=== PATIENT | male | born 1955 | race American Indian/Alaskan Native ===

== ENCOUNTER 2017-09-02 11:25 | Outpatient (CLI) | payer MEDICAID ==
[2017-09-02 12:25] LABS: Blood Urea Nitrogen 7 mg/dL (9-20)
--- NOTE | 2017-09-02 13:50 | Cat Scan Report ---
CT LOWER EXTREMITY RIGHT WITH CONTRAST HISTORY: Right hip pain. TECHNIQUE: Helical CT was performed through the pelvis and right hip following IV contrast. FINDINGS: Mild osteopenia is suspected. Moderate to severe osteoarthritic changes are identified at the right hip. There is severe loss of joint space, articular surface sclerosis and multiple subchondral cysts in the superior right femoral head measuring up to 1 cm. There is no evidence for fracture, bone lesion or convincing osteonecrosis. Mild to moderate osteoarthritic changes are identified at the left hip. The pelvis is intact. Normal SI joints. No abnormal enhancement following IV contrast. IMPRESSION: Moderate to severe osteoarthritic changes at the right hip.
== END 2017-09-02 11:26 | disposition home or self-care (01) ==
LOC: CT 11:25
PROVIDERS: ATTEND Internal Medicine
DX: M16.11 Unilateral primary osteoarthritis, right hip (principal)
CPT/HCPCS: 36415; 73701; 82565; 84520; Q9967

== ENCOUNTER 2019-10-12 09:05 | Outpatient (CLI) | payer MEDICAID ==
--- NOTE | 2019-10-12 11:01 | Cat Scan Report ---
CT ABDOMEN AND PELVIS WITHOUT CONTRAST HISTORY: Malignant neoplasm of prostate gland COMPARISON: None. TECHNIQUE: Axial CT images were obtained through the abdomen and pelvis without IV contrast. Sagittal and coronal reformatted images. All CT scans at this location are performed using CT dose reduction for ALARA by means of automated exposure control. FINDINGS: CT ABDOMEN: Lung Bases: Clear. Liver: No significant abnormality. Biliary: No significant abnormality. Spleen: No significant abnormality. Unenlarged. Pancreas: No significant abnormality. Adrenals: No significant abnormality. Kidneys: No significant abnormality. Lymphatics: No lymphadenopathy. Vasculature: No significant abnormality. Bowel/Peritoneum: No significant abnormality. No free air. No free fluid. Normal appendix. CT PELVIS: : No significant abnormality. Osseous Structures: Mild degenerative changes are noted in the thoracolumbar spine and bilateral hips . No suspicious blastic bony lesion is identified in the visualized osseous structures. Additional Findings: None IMPRESSION: No evidence for metastatic disease to the abdomen or pelvis. Signer Name: Jeffery Campbell Jr, MD Signed: 10/12/2019 10:56 AM Workstation Name: [id number]
--- NOTE | 2019-10-12 14:17 | Nuclear Medicine Report ---
Nuclear medicine whole body bone imaging study. History: [id number] neoplasm of prostate Comparison: No prior bone scans are available for comparison. Comparison is made with CT from [facility] today. Procedure: The patient was administered 26 mCi of technetium 99m labeled MDP intravenously. Findings: There is bilateral, relatively symmetric articular activity which is most likely degenerati ve given the distribution and symmetry. No asymmetric radiotracer activity is seen within the included axial and appendicular skeleton. There is normal soft tissue activity in the kidneys and urinary bladder. Impression: No scintigraphic evidence of osseous metastatic disease. Presumed degenerative changes, a s above. Signer Name: Femi Tong MD Signed: 10/12/2019 2:13 PM Workstation Name: [id number]
== END 2019-10-12 09:06 | disposition home or self-care (01) ==
LOC: NM 09:05
PROVIDERS: ATTEND Urology
DX: M47.814 Spondylosis without myelopathy or radiculopathy, thoracic region (principal); M16.0 Bilateral primary osteoarthritis of hip; C61 Malignant neoplasm of prostate
CPT/HCPCS: 74176; 78306; A9503

== ENCOUNTER 2020-06-26 22:23 | Inpatient (IN) | payer MEDICAID ==
[2020-06-27 00:12] LABS: Basophils # (Auto) 0.1 K/mm3 (0.0-0.1); Eosinophils # (Auto) 0.1 K/mm3 (0.0-0.4); Eosinophils % (Auto) 1.5 % (0.0-4.3); Hemoglobin 12.9 gm/dl (11.8-15.2); Lymphocytes # (Auto) 1.7 K/mm3 (1.2-5.4); Lymphocytes % (Auto) 28.9 % (13.4-35.0); Mean Corpuscular HGB Conc 34 % (32-34); Mean Corpuscular Volume 80 fl (84-94); Monocytes # (Auto) 0.8 K/mm3 (0.0-0.8); Monocytes % (Auto) 13.9 % (0.0-7.3); Platelet Count 269 K/mm3 (140-440); Red Blood Count 4.73 M/mm3 (3.65-5.03); Red Cell Distribution Width 14.5 % (13.2-15.2)
[2020-06-27 00:36] LABS: Alanine Aminotransferase 17 units/L (7-56); Albumin 4.8 g/dL (3.9-5); BUN/Creatinine Ratio 11; Blood Urea Nitrogen 9 mg/dL (9-20); Calcium 10.1 mg/dL (8.4-10.2); Hemolysis Index 7
--- NOTE | 2020-06-27 03:42 | Emergency Department Report ---
ED Neuro Deficit HPI - General Chief Complaint: Dizziness Stated Complaint: DIZZINESS/BLURRY VISION Time Seen by Provider: 06/27/20 03:32 Source: patient Mode of arrival: Ambulatory Limitations: No Limitations - History of Present Illness Initial Comments: Patient is 65 years old male with history of hypertension. Patient presented to the ER complaining of dizziness, inability to walk straight and double vision since Thursday. Patient stated that his symptoms initially started 10 days ago and it went away and came back on Thursday. Patient denied any focal weakness, numbness or tingling sensation. He also denied any speech problem. Patient denied any chest pain, shortness of breath, nausea or vomiting. -: days(s) (5) Location: ataxia Presenting Symptoms: Present: Blurred/Loss of Vision - Related Data Allergies/Adverse Reactions: Allergies Allergy/AdvReac Type Severity Reaction Status Date / Time No Known Allergies Allergy Unverified 09/02/17 11:26 ED Review of Systems ROS: Stated complaint: DIZZINESS/BLURRY VISION Other details as noted in HPI Comment: All other systems reviewed and negative Constitutional: denies: chills, fever Respiratory: denies: cough, shortness of breath, SOB with exertion Cardiovascular: denies: chest pain, palpitations Gastrointestinal: denies: abdominal pain, nausea, vomiting Neurological: abnormal gait, vertigo. denies: headache, weakness, numbness, paresthesias, confusion ED Past Medical Hx - Past Medical History Previous Medical History?: Yes Hx Hypertension: Yes Additional medical history: prostate CA - Social History Smoking Status: Current Every Day Smoker ED Neuro Physical Exam - General Limitations: No Limitations General appearance: alert, in no apparent distress Suspected Stroke: Yes - Head Head exam: Present: atraumatic, normocephalic, normal inspection - Eye Eye exam: Present: normal appearance, PERRL - ENT ENT exam: Present: normal exam, normal orophraynx, mucous membranes moist - Neck Neck exam: Present: normal inspection, full ROM. Absent: tenderness, meningismus - Respiratory Respiratory exam: Present: normal lung sounds bilaterally - Cardiovascular Cardiovascular Exam: Present: regular rate, normal rhythm, normal heart sounds - GI/Abdominal GI/Abdominal exam: Present: soft, normal bowel sounds. Absent: distended, tenderness, guarding, rebound, rigid, organomegaly, mass, bruit, pulsatile mass, hernia - Extremities Exam Extremities exam: Present: normal inspection, full ROM, normal capillary refill. Absent: pedal edema, calf tenderness - Back Exam Back exam: Present: normal inspection, full ROM. Absent: CVA tenderness (R), CV A tenderness (L) - Neurological Exam Neurological exam: Present: alert, oriented X3, CN II-XII intact, abnormal gait. Absent: motor sensory deficit, reflexes normal - NIHSS Assessment Interval: Baseline 1a. Level of Consciousness: alert/keenly responsive 1b. LOC Questions: answers both correctly 1c. LOC Commands: performs tasks correctly 2. Best Gaze: normal 3. Visual: no visual loss 4. Facial Palsy: normal symmetrical movement 5b. Motor Arm Right: no drift 5a. Motor Arm Left: no drift 6a. Motor Leg Left: no drift 6b. Motor Leg Right: no drift 7. Limb Ataxia: present 1 limb 8. Sensory: normal 9. Best Language: no aphasia 10. Dysarthria: normal 11. Extinction/Inattention: no abnormality Total Score: 1 Stroke Severity: Minor Stroke - Psychiatric Psychiatric exam: Present: normal mood - Skin Skin exam: Present: warm, intact, normal color ED Course Vital Signs 06/26/20 06/27/20 23:20 04:00 Temperature 98.3 F Pulse Rate 79 Respiratory 18 18 Rate Blood Pressure 142/86 O2 Sat by Pulse 100 100 Oximetry - Lab Data Result diagrams: 06/26/20 23:43 06/26/20 23:43 Lab Results 06/26/20 06/26/20 06/27/20 Range/Units 23:43 23:43 03:46 WBC 6.0 (4.5-11.0) K/mm3 RBC 4.73 (3.65-5.03) M/mm3 Hgb 12.9 (11.8-15.2) gm/dl Hct 38.0 (35.5-45.6) % MCV 80 L (84-94) fl MCH 27 L (28-32) pg MCHC 34 (32-34) % RDW 14.5 (13.2-15.2) % Plt Count 269 (140-440) K/mm3 Lymph % (Auto) 28.9 (13.4-35.0) % [place] % (Auto) 13.9 H (0.0-7.3) % Eos % (Auto) 1.5 (0.0-4.3) % Baso % (Auto) 1.0 (0.0-1.8) % Lymph # (Auto) 1.7 (1.2-5.4) K/mm3 [place] # (Auto) 0.8 (0.0-0.8) K/mm3 Eos # (Auto) 0.1 (0.0-0.4) K/mm3 Baso # (Auto) 0.1 (0.0-0.1) K/mm3 Seg Neutrophils % 54.7 (40.0-70.0) % Seg Neutrophils # 3.3 (1.8-7.7) K/mm3 PT 12.4 (12.2-14.9) Sec. INR 0.93 (0.87-1.13) APTT 42.2 H (24.2-36.6) Sec. Thrombin Time 16.9 (15.1-19.6) Sec. Sodium 135 L (137-145) mmol/L Potassium 4.7 (3.6-5.0) mmol/L Chloride 97.4 L (98-107) mmol/L Carbon Dioxide 25 (22-30) mmol/L Anion Gap 17 mmol/L BUN 9 (9-20) mg/dL Creatinine 0.8 (0.8-1.3) mg/dL Estimated GFR > 60 ml/min BUN/Creatinine Ratio 11 % Glucose 96 (75-100) mg/dL Calcium 10.1 (8.4-10.2) mg/dL Total Bilirubin 0.30 (0.1-1.2) mg/dL AST 32 (5-40) units/L ALT 17 (7-56) units/L Alkaline Phosphatase 147 H (35-129) units/L Total Creatine Kinase (55-170) units/L CK-MB (CK-2) (0.0-4.0) ng/mL CK-MB (CK-2) Rel Index (0-4) Troponin T (0.00-0.029) ng/mL Total Protein 7.9 (6.3-8.2) g/dL Albumin 4.8 (3.9-5) g/dL Albumin/Globulin Ratio 1.5 % 06/27/20 Range/Units 03:46 WBC (4.5-11.0) K/mm3 RBC (3.65-5.03) M/mm3 Hgb (11.8-15.2) gm/dl Hct (35.5-45.6) % MCV (84-94) fl MCH (28-32) pg MCHC (32-34) % RDW (13.2-15.2) % Plt Count (140-440) K/mm3 Lymph % (Auto) (13.4-35.0) % [place] % (Auto) (0.0-7.3) % Eos % (Auto) (0.0-4.3) % Baso % (Auto) (0.0-1.8) % Lymph # (Auto) (1.2-5.4) K/mm3 [place] # (Auto) (0.0-0.8) K/mm3 Eos # (Auto) (0.0-0.4) K/mm3 Baso # (Auto) (0.0-0.1) K/mm3 Seg Neutrophils % (40.0-70.0) % Seg Neutrophils # (1.8-7.7) K/mm3 PT (12.2-14.9) Sec. INR (0.87-1.13) APTT (24.2-36.6) Sec. Thrombin Time (15.1-19.6) Sec. Sodium (137-145) mmol/L Potassium (3.6-5.0) mmol/L Chloride (98-107) mmol/L Carbon Dioxide (22-30) mmol/L Anion Gap mmol/L BUN (9-20) mg/dL Creatinine (0.8-1.3) mg/dL Estimated GFR ml/min BUN/Creatinine Ratio % Glucose (75-100) mg/dL Calcium (8.4-10.2) mg/dL Total Bilirubin (0.1-1.2) mg/dL AST (5-40) units/L ALT (7-56) units/L Alkaline Phosphatase (35-129) units/L Total Creatine Kinase 81 (55-170) units/L CK-MB (CK-2) 1.5 (0.0-4.0) ng/mL CK-MB (CK-2) Rel Index 1.8 (0-4) Troponin T < 0.010 (0.00-0.029) ng/mL Total Protein (6.3-8.2) g/dL Albumin (3.9-5) g/dL Albumin/Globulin Ratio % - EKG Data -: EKG Interpreted by Me EKG shows normal: sinus rhythm 06/27/20 04:58 Right bundle branch block. - Radiology Data Radiology results: report reviewed - Medical Decision Making Patient is 65 years old male with history of hypertension. Patient presented to the ER complaining of dizziness, inability to walk straight and double vision since Thursday. Patient stated that his symptoms initially started 10 days ago and it went away and came back on Thursday. Patient denied any focal weakness, numbness or tingling sensation. He also denied any speech problem. Patient d enied any chest pain, shortness of breath, nausea or vomiting. CT brain is negative for acute finding. Labs reviewed and is unremarkable. Patient symptoms consistent with posterior circulation stroke. I discussed the patient with Dr. Singh, he agreed to admit the patient to medical service for st roke management and further management. Critical Care Time: Yes Critical care time in (mins) excluding proc time.: 30 Critical care attestation.: If time is entered above; I have spent that time in minutes in the direct care of this critically ill patient, excluding procedure time. ED Disposition Clinical Impression: Acute CVA (cerebrovascular accident) Disposition: DC-09 OP ADMIT IP TO THIS HOSP Is pt being admited?: Yes Condition: Stable
[2020-06-27 04:23] LABS: INR 0.93 (0.87-1.13); Partial Thromboplastin Time 42.2 Sec. (24.2-36.6); Thrombin Time 16.9 Sec. (15.1-19.6)
--- NOTE | 2020-06-27 04:33 | Cat Scan Report ---
CT HEAD WITHOUT CONTRAST INDICATION : Stroke-Like symptoms x 4 days. TECHNIQUE: Axial, coronal and sagittal CT imaging was performed from the skull apex through the skul l base without contrast. All CT scans at this location are performed using CT dose reduction for ALA RA by means of automated exposure control. COMPARISON: None available. FINDINGS: PARENCHYMA: No mass, midline shift, hemorrhage, extraaxial collection or acute territorial infarctio n. There is moderate generalized atrophy. VENTRICLES: Symmetric and normal in size. SOFT TISSUES: No significant abnormality of the included soft tissues/orbits. BONES: No acute osseous abnormality. SINUSES: No significant abnormality. ADDITIONAL FINDINGS: None. IMPRESSION: 1. No acute intracranial abnormality. Signer Name: Fady Watson MD Signed: 06/27/2020 4:28 AM Workstation Name: [id number]
[2020-06-27 04:39] LABS: Creatine Kinase MB 1.5 ng/mL (0.0-4.0)
[2020-06-27] MEDS ORDERED: hydrALAZINE 20 MG/1 ML INJ IV PRN (05:39)
--- NOTE | 2020-06-27 05:45 | History and Physical Report ---
History of Present Illness Date of examination: 06/27/20 Date of admission: 06/27/20 04:59 Chief complaint: 06/27/20 History of present illness: 65 years old male with history of hypertension was brought to the emergency room because of dizziness, inability to walk straight and double vision since Thursday. Patient stated that his symptoms initially started 10 days ago in [place] and it went away and came back on Thursday. Patient denied any focal weakness, numbness or tingling sensation. He also denied any speech problem. Patient denied any chest pain, shortness of breath, nausea or vomiting. In the emergency room initial CT scan of the head shows no acute intracranial abnormality Past History Past Medical History: hypertension, other (To vocal abuse prostate cancer) Medications and Allergies Allergies Allergy/AdvReac Type Severity Reaction Status Date / Time No Known Allergies Allergy Unverified 09/02/17 11:26 Review of Systems Neurological: balance difficulties, other (Dizziness, blurring of vision) Exam - Constitutional Vitals: Temp Pulse Resp BP Pulse Ox 98.3 F 79 18 142/86 100 06/26/20 23:20 06/26/20 23:20 06/27/20 04:00 06/26/20 23:20 06/27/20 04:00 General appearance: Present: no acute distress, well-nourished - EENT Eyes: Present: PERRL ENT: hearing intact, clear oral mucosa - Neck Neck: Present: supple, normal ROM - Respiratory Respiratory effort: normal Respiratory: bilateral: CTA - Cardiovascular Heart Sounds: Present: S1 & S2. Absent: rub, click - Extremities Extremities: pulses symmetrical, No edema Peripheral Pulses: within normal limits - Abdominal General gastrointestinal: Present: soft, non-tender, non-distended, normal bowel sounds Male genitourinary: Present: normal - Integumentary Integumentary: Present: clear, warm, dry - Musculoskeletal Musculoskeletal: gait normal, strength equal bilaterally - Psychiatric Psychiatric: appropriate mood/affect, intact judgment & insight - Neurologic Neurologic: CNII-XII intact, moves all extremities, other (Abnormal gait complai patricia of dizziness and blurry vision) HEART Score - HEART Score Troponin: Troponin T < 0.010 ng/mL (0.00-0.029) 06/27/20 03:46 Results - Labs CBC & Chem 7: 06/26/20 23:43 06/26/20 23:43 Labs: Laboratory Last Values WBC 6.0 K/mm3 (4.5-11.0) 06/26/20 23:43 RBC 4.73 M/mm3 (3.65-5.03) 06/26/20 23:43 Hgb 12.9 gm/dl (11.8-15.2) 06/26/20 23:43 Hct 38.0 % (35.5-45.6) 06/26/20 23:43 MCV 80 fl (84-94) L 06/26/20 23:43 MCH 27 pg (28-32) L 06/26/20 23:43 MCHC 34 % (32-34) 06/26/20 23:43 RDW 14.5 % (13.2-15.2) 06/26/20 23:43 Plt Count 269 K/mm3 (140-440) 06/26/20 23:43 Lymph % (Auto) 28.9 % (13.4-35.0) 06/26/20 23:43 [place] % (Auto) 13.9 % (0.0-7.3) H 06/26/20 23:43 Eos % (Auto) 1.5 % (0.0-4.3) 06/26/20 23:43 Baso % (Auto) 1.0 % (0.0-1.8) 06/26/20 23:43 Lymph # (Auto) 1.7 K/mm3 (1.2-5.4) 06/26/20 23:43 [place] # (Auto) 0.8 K/mm3 (0.0-0.8) 06/26/20 23:43 Eos # (Auto) 0.1 K/mm3 (0.0-0.4) 06/26/20 23:43 Baso # (Auto) 0.1 K/mm3 (0.0-0.1) 06/26/20 23:43 Seg Neutrophils % 54.7 % (40.0-70.0) 06/26/20 23:43 Seg Neutrophils # 3.3 K/mm3 (1.8-7.7) 06/26/20 23:43 PT 12.4 Sec. (12.2-14.9) 06/27/20 03:46 INR 0.93 (0.87-1.13) 06/27/20 03:46 APTT 42.2 Sec. (24.2-36.6) H 06/27/20 03:46 Thrombin Time 16.9 Sec. (15.1-19.6) 06/27/20 03:46 Sodium 135 mmol/L (137-145) L 06/26/20 23:43 Potassium 4.7 mmol/L (3.6-5.0) 06/26/20 23:43 Chloride 97.4 mmol/L (98-107) L 06/26/20 23:43 Carbon Dioxide 25 mmol/L (22-30) 06/26/20 23:43 Anion Gap 17 mmol/L 06/26/20 23:43 BUN 9 mg/dL (9-20) 06/26/20 23:43 Creatinine 0.8 mg/dL (0.8-1.3) 06/26/20 23:43 Estimated GFR > 60 ml/min 06/26/20 23:43 BUN/Creatinine Ratio 11 % 06/26/20 23:43 Glucose 96 mg/dL (75-100) 06/26/20 23:43 Calcium 10.1 mg/dL (8.4-10.2) 06/26/20 23:43 Total Bilirubin 0.30 mg/dL (0.1-1.2) 06/26/20 23:43 AST 32 units/L (5-40) 06/26/20 23:43 ALT 17 units/L (7-56) 06/26/20 23:43 Alkaline Phosphatase 147 units/L (35-129) H 06/26/20 23:43 Total Creatine Kinase 81 units/L (55-170) 06/27/20 03:46 CK-MB (CK-2) 1.5 ng/mL (0.0-4.0) 06/27/20 03:46 CK-MB (CK-2) Rel Index 1.8 (0-4) 06/27/20 03:46 Troponin T < 0.010 ng/mL (0.00-0.029) 06/27/20 03:46 Total Protein 7.9 g/dL (6.3-8.2) 06/26/20 23:43 Albumin 4.8 g/dL (3.9-5) 06/26/20 23:43 Albumin/Globulin Ratio 1.5 % 06/26/20 23:43 - Imaging and Cardiology CT Scan - head: report reviewed Assessment and Plan VTE prophylaxis?: Chemical Plan of care discussed with patient/family: Yes - Patient Problems (1) Acute CVA (cerebrovascular accident) Current Visit: Yes Status: Acute Plan to address problem: Admit the patient to the medical floor telemetry. Put the patient on CVA p athway. Aspirin 325 mg p.o. daily. Lipitor 80 mg p.o. daily. MRI of the brain with and without contrast, MRA of the brain and neck with and without contrast. Carotid Doppler. Echocardiogram. Will consult neurology for evaluation. We also consult PT occupational therapy and his speech evaluation. (2) Hypertension Current Visit: Yes Status: Acute Plan to address problem: Hydralazine 10 mg IV every 6 hours as needed. Labetalol as needed for BP. We monitor the blood pressure closely (3) Tobacco abuse Current Visit: Yes Status: Acute Plan to address problem: We counseled the patient regarding quitting smoking. We will put the patient on nicotine 7 mg daily to the skin (4) Prostate cancer Current Visit: Yes Status: Acute Plan to address problem: Stable. Patient will see the oncology as outpatient. (5) DVT prophylaxis Current Visit: Yes Status: Acute Plan to address problem: Heparin 5000 units subcu every 8 hours for DVT prophylaxis. Protonix 40 mg p.o. daily for GI prophylaxis. Patient is a full code
[2020-06-27] MEDS: HEPARIN 5,000 UNIT/1 ML VIAL SUB-Q SCH ×3 (06:47→21:36)
[2020-06-27] MEDS: PANTOPRAZOLE 40 MG TAB PO SCH (07:41)
--- NOTE | 2020-06-27 10:22 | Magnetic Resonance Report ---
MR MRA/MRV head wo con INDICATION / CLINICAL INFORMATION: Stroke. TECHNIQUE: MRA of the head. 3-D/MIP reformats postprocessed. Percentage stenosis is determined by direct quantit ative measurements of distal internal carotid artery diameter compared with normal reference segments or by criteria similar to NASCET where applicable. COMPARISON: CT head 06/27/2020 FINDINGS: MRA HEAD: Intracranial vertebral arteries: No occlusion or significant stenosis. Basilar artery: No occlusion or significant stenosis. Posterior cerebral arteries: No occlusion or significant stenosis. Intracranial internal carotid arteries: No occlusion or significant stenosis. Anterior cerebral arteries: No occlusion or significant stenosis. Middle cerebral arteries: No occlusion or significant stenosis. No aneurysm. Additional findings: None. IMPRESSION: 1. No occlusion or significant stenosis of the major intracranial vasculature. Signer Name: Lewis Dawkins MD Signed: 06/27/2020 10:17 AM Workstation Name: [id number]
--- NOTE | 2020-06-27 10:44 | Magnetic Resonance Report ---
MR brain wo con INDICATION / CLINICAL INFORMATION: Stroke. TECHNIQUE: Multiplanar, multisequence MR images of the brain were obtained. COMPARISON: CT head 06/27/2020 FINDINGS: INTRACRANIAL: No restricted diffusion. No hemorrhage. Ventricular caliber is normal. No extra-axial c ollection. No mass. No herniation. Major intracranial vascular flow voids are preserved. Generalized atrophy. ORBITS: No significant abnormality of visualized orbits. SINUSES / MASTOIDS: Mucous retention cyst in the alveolar recess right maxillary sinus. No significan t abnormality of visualized sinuses and mastoid air cells. ADDITIONAL FINDINGS: None. IMPRESSION: 1. No significant intracranial abnormality. Signer Name: Lewis Dawkins MD Signed: 06/27/2020 10:40 AM Workstation Name: [id number]
--- NOTE | 2020-06-27 10:51 | Electrocardiograph Report ---
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
--- NOTE | 2020-06-27 10:51 | Electrocardiograph Report ---
[facility] Test Date: 2020-06-27 Test Time: 04:44:37 Pat Name: JARRED YOST JR Department: Room: A456 1 Gender: M Fire Alarm Repairer: KIMBERLY : 1955 Requested By: CATHERINE SAAB Order Number: [id number] Reading MD: Adeel Mcintyre Measurements Intervals [place] Rate: 75 P: 78 [place]: 127 QRS: 72 QRSD: 137 T: 40 QT: 426 QTc: 477 Interpretive Statements Sinus rhythm Ventricular trigeminy Right bundle branch block Compared to ECG 06/26/2020 23:29:07 Ventricular premature complex(es) now present Atrial premature complex(es) no longer present Electronically Signed On 06-27-2020 10:51:19 EDT by Adeel Mcintyre
--- NOTE | 2020-06-27 12:20 | Consultation ---
History of Present Illness Consult date: 06/27/20 Reason for Consult: Dizziness History of present illness: Patient is 65 years old male with history of hypertension. Patient presented to the ER complaining of dizziness, inability to walk straight and double vision since Thursday. Patient stated that his symptoms initially started 10 days ago and it went away and came back on Thursday. Patient denied any focal weakness, numbness or tingling sensation. He also denied any speech problem. Patient denied any chest pain, shortness of breath, nausea or vomiting. -: No improvent in the Gait , vision improved. Past History Past Medical History: hypertension, other (To vocal abuse prostate cancer) Medications and Allergies Allergies Allergy/AdvReac Type Severity Reaction Status Date / Time No Known Allergies Allergy Unverified 09/02/17 11:26 Active Meds: Active Medications Aspirin (Aspirin 325 Mg Tab) 325 mg PO QDAY [facility] Atorvastatin Calcium (Atorvastatin 40 Mg Tab) 80 mg PO QHS [facility] Heparin Sodium (Porcine) (Heparin 5,000 Unit/1 Ml Vial) 5,000 unit SUB-Q Q8HR [facility] Last Admin: 06/27/20 06:47 Dose: 5,000 unit Documented by: Hydralazine HCl (Hydralazine 20 Mg/1 Ml Inj) 10 mg IV Q6H PRN PRN Reason: htn Sodium Chloride (Nacl 0.9% 1000 Ml) 1,000 mls @ 100 mls/hr IV DIRECT [facility] Labetalol HCl (Labetalol 20 Mg/4 Ml Inj) 10 mg IV Q5MIN PRN PRN Reason: to maintain SBP < 180 Nicotine (Nicotine 7 Mg/24 Hr Patch) 7 mg TD QDAY [facility] Pantoprazole Sodium (Pantoprazole 40 Mg Tab) 40 mg PO QDAC [facility] Last Admin: 06/27/20 07:41 Dose: 40 mg Documented by: Sodium Chloride (Sodium Chloride 0.9% 10 Ml Flush Syringe) 10 ml IV PRN PRN PRN Reason: LINE FLUSH Physical Examination - Vital Signs Vital Signs: Vital Signs Temp Pulse Resp BP Pulse Ox 98.3 F 79 18 142/86 100 06/26/20 23:20 06/26/20 23:20 06/26/20 23:20 06/26/20 23:20 06/26/20 23:20 - Physical Exam Narrative exam: There is no finger to nose abnormality . The patient is alert , Gait is not Tested. Results - Laboratory Findings CBC and BMP: 06/26/20 23:43 06/26/20 23:43 Abnormal Lab Findings: Abnormal Labs 06/26/20 06/26/20 06/27/20 23:43 23:43 03:46 MCV 80 L MCH 27 L [place] % (Auto) 13.9 H APTT 42.2 H Sodium 135 L Chloride 97.4 L Alkaline Phosphatase 147 H Assessment and Plan 1. Impression / Plan : Dizziness ( unexplained - ? CVA / Hypoperfusion ). MRI Brain and MRA Brain is negative . 2.Needs a follow up , i will follow up in office in 1 week. 3. Repeat MRI Brain in 1 week. 4. Out Patient PT for Gait and Balance . 5. Continue Medications. Dr. Prerna RIBERA
--- NOTE | 2020-06-27 12:27 | Vascular Lab Report ---
DUPLEX DOPPLER ULTRASOUND CAROTID, BILATERAL INDICATION / CLINICAL INFORMATION: stroke. History prostate cancer, blurred vision. COMPARISON: None available. FINDINGS: RIGHT CAROTID: Minimal atherosclerotic disease visualized within the bulb. - PLAQUE ESTIMATE (%): < 50% - CCA velocity: 93 cm/sec. - ICA peak systolic velocity: 101 cm/sec. - ICA/CCA PSV Ratio: 1.1 Right Vertebral Artery: Antegrade flow. LEFT CAROTID: Minimal atherosclerotic disease visualized within the bulb. - PLAQUE ESTIMATE (%): < 50% - CCA velocity: 88 cm/sec. - ICA peak systolic velocity: 100 cm/sec. - ICA/CCA PSV Ratio: 1.1 Left Vertebral Artery: Antegrade flow. IMPRESSION: 1. Right Internal Carotid Artery: Less than 50% diameter stenosis. 2. Left Internal Carotid Artery: Less than 50% diameter stenosis. Velocity criteria are extrapolated from diameter data as defined by the Society of Radiologists in Ul trasound Consensus Conference, Radiology 2003; 229;340-346. NO STENOSIS (NORMAL) - Plaque = none; ICA PSV < 125 cm/sec; ICA/CCA PSV Ratio < 2.0 <50% STENOSIS - Plaque < 50%; ICA PSV < 125 cm/sec; ICA/CCA PSV Ratio < 2.0 50-69% STENOSIS - Plaque > 50%; ICA PSV = 125-230 cm/sec; ICA/CCA PSV Ratio = 2.0-4.0 >70% BUT <100% STENOSIS - Plaque > 50%; ICA PSV > 230 cm/sec; ICA/CCA PSV Ratio > 4.0 NEAR OCCLUSION - Plaque = visible lumen; ICA PSV = high/low/none; ICA/CCA PSV Ratio = variable TOTAL OCCLUSION - Plaque = no lumen; ICA PSV = none; ICA/CCA PSV Ratio = N/A Scribed by: Lalitha John RDMS, RVT Scribed: 06/27/2020 11:21 AM Signer Name: Kyle Dalal MD Signed: 06/27/2020 12:22 PM Workstation Name: [id number]
[2020-06-27] MEDS: SODIUM CHLORIDE 0.9% 1000 ML 1,000 ML IV SCH (14:41)
[2020-06-27] MEDS: ASPIRIN 325 MG TAB PO SCH (14:41)
[2020-06-27] MEDS: NICOTINE 7 MG/24 HR PATCH TD SCH (14:44)
--- NOTE | 2020-06-27 16:19 | Event Note ---
Date: 06/27/20 65 year old M here with dizziness MRI brain pending Start on meclizine Neurology to see PT/OT
[2020-06-27] MEDS: MECLIZINE 25 MG TAB PO SCH (18:20)
[2020-06-28] MEDS: MECLIZINE 25 MG TAB PO SCH ×2 (00:47→09:01)
[2020-06-28] MEDS: SODIUM CHLORIDE 0.9% 1000 ML 1,000 ML IV SCH (02:40)
[2020-06-28 06:25] LABS: Chol/HDL Ratio 2.39 %
[2020-06-28] MEDS: HEPARIN 5,000 UNIT/1 ML VIAL SUB-Q SCH ×2 (06:25→13:37)
[2020-06-28] MEDS: ASPIRIN 325 MG TAB PO SCH (09:01)
[2020-06-28] MEDS: NICOTINE 7 MG/24 HR PATCH TD SCH ×2 (09:01→09:04)
[2020-06-28] MEDS: PANTOPRAZOLE 40 MG TAB PO SCH (09:02)
--- NOTE | 2020-06-28 13:18 | Discharge Summary ---
Providers - Providers Date of Admission: 06/27/20 04:59 Date of discharge: 06/28/20 Attending physician: RANDELL STONE 06/27/20 Consult to Physician [CONS] Routine Comment: Consulting Provider: ESTHER PATTERSON Physician Instructions: Reason For Exam: cva 06/27/20 05:36 Occupational Therapy Evaluate and Treat [CONS] Routine Comment: Reason For Exam: Neuro deficits Physical Therapy Evaluation and Treat [CONS] Routine Comment: Reason For Exam: Neuro deficits 06/27/20 05:39 Speech Therapy Evaluation and Treat [CONS] Routine Reason For Exam: swallow eval Primary care physician: ELISE ARANGO Hospitalization Condition: Stable Hospital course: 65 years old male with history of hypertension was brought to the emergency room because of dizziness, inability to walk straight and double vision since Thursday. Patient stated that his symptoms initially started 10 days ago in [place] and it went away and came back on Thursday. Patient denied any focal weakness, numbness or tingling sensation. He also denied any speech problem. Patient denied any chest pain, shortness of breath, nausea or vomiting. In the emergency room initial CT scan of the head shows no acute intracranial abnormality Hospital course He was admitted to rule out possible CVA. He was started on aspirin. MRI brain showed no acute CVA. He was seen by neurology and has been cleared for DC. He had PT who recommends outpatient PTn for gait and balance. He has been started on meclizine and will follow up with neurology for a repeat MRI brain in a week. Disposition: DC-01 TO HOME OR SELFCARE Final Discharge Diagnosis (Prints w/discharge instructions): Dizziness Time spent for discharge: 30 mins Core Measure Documentation - Palliative Care Palliative Care/ Comfort Measures: Not Applicable - Core Measures Any of the following diagnoses?: none Exam - Constitutional Vitals: Temp Pulse Resp BP Pulse Ox 97.9 F 58 L 18 111/69 99 06/28/20 08:01 06/28/20 08:01 06/28/20 10:00 06/28/20 08:01 06/28/20 08:01 General appearance: Present: no acute distress, well-nourished - EENT Eyes: Present: PERRL ENT: hearing intact, clear oral mucosa - Neck Neck: Present: supple, normal ROM - Respiratory Respiratory effort: normal Respiratory: bilateral: CTA - Cardiovascular Heart Sounds: Present: S1 & S2. Absent: rub, click - Extremities Extremities: pulses symmetrical, No edema Peripheral Pulses: within normal limits - Abdominal General gastrointestinal: Present: soft, non-tender, non-distended, normal bowel sounds Male genitourinary: Present: normal - Integumentary Integumentary: Present: clear, warm, dry - Musculoskeletal Musculoskeletal: gait normal, strength equal bilaterally - Psychiatric Psychiatric: appropriate mood/affect, intact judgment & insight - Neurologic Neurologic: CNII-XII intact, moves all extremities Plan Diet: low salt Additional Instructions: Continue meclizine. Follow up with neurology in 1 week for a repeat MRI brain. Continue PT Follow up with: ELISE ARANGO MD [Primary Care Provider] - 3-5 Days ESTHER PATTERSON MD [Staff Physician] - 7 Days Prescriptions: Meclizine [Antivert] 25 mg PO Q8H #60 tablet
[2020-06-28 13:37] VITALS: BP 109/63
== END 2020-06-28 16:31 | disposition home health service (06) | DRG 149 ==
LOC: ED 22:23 → 4A 06-27 04:59
PROVIDERS: ADMIT Hospitalist; ATTEND Internal Medicine
DX: R42 Dizziness and giddiness (principal); C61 Malignant neoplasm of prostate; I10 Essential (primary) hypertension; F17.200 Nicotine dependence, unspecified, uncomplicated
CPT/HCPCS: 36415; 70450; 70544; 70551; 80053; 80061; 82550; 82553; 84484; 85025; 85610; 85670; 85730; 93005; 93306; 93880; 99406; G0378; A9270-GY; J1644; J7030